=== PATIENT | female | born 1980 | race Caucasian/White ===

== ENCOUNTER 2016-11-16 15:27 | Inpatient (IN) | payer OTHER ==
[2016-11-16 21:20] VITALS: O2SAT 100
[2016-11-16] MEDS ORDERED: LACTATED RINGER'S 1000 ML INJ 1,000 ML IV SCH (22:15)
[2016-11-16] MEDS ORDERED: ALBUMIN HUMAN 25% 25 GM/100 ML BAGP IV ONE (22:15)
[2016-11-16 22:30] VITALS: O2SAT 100
[2016-11-16] MEDS ORDERED: VECURONIUM BROMIDE 10 MG VIAL IV SCH (22:45)
[2016-11-16] MEDS ORDERED: INSULIN HUMAN REGULAR 1,000 UNITS/10 ML VIAL IV PUSH SCH (22:45)
[2016-11-16] MEDS ORDERED: ceFAZolin 1,000 MG/NS 100 ML IV SCH ×2 (22:45)
[2016-11-16] MEDS ORDERED: LEVOTHYROXINE 400 MCG/NS 500 ML IV SCH ×2 (22:45)
[2016-11-16] MEDS ORDERED: VASOPRESSIN 80 U/NS 100 ML Titrate per Translife Protocol IV PRN ×2 (22:45)
[2016-11-16] MEDS ORDERED: DEXTROSE 50% IN WATER 50 ML VIAL(D50) IV SCH (22:45)
[2016-11-16] MEDS ORDERED: VECURONIUM BROMIDE 10 MG VIAL IV PRN (22:45)
[2016-11-16] MEDS ORDERED: LEVOTHYROXINE SODIUM 100 MCG VIAL IV PUSH ONE (22:45)
[2016-11-16] MEDS ORDERED: NALOXONE HCL 2 MG/2 ML VIAL IV ONE (22:45)
[2016-11-16] MEDS ORDERED: ICU - CALL ORDERING PHYSICIAN PRN (23:00)
[2016-11-16] MEDS ORDERED: ICU - SODIUM PHOSPHATE 30 MMOL/NS 250 ML IV PRN ×2 (23:00)
[2016-11-16] MEDS ORDERED: ICU - POTASSIUM CHLORIDE/AQUEOUS SOLN 20 MEQ/100 ML IVPB IV PRN (23:00)
[2016-11-16] MEDS ORDERED: ICU - MAGNESIUM SULFATE 4 GM/NS 100 ML IV PRN ×2 (23:00)
[2016-11-16] MEDS ORDERED: methylPREDNISolone SO SUCC INJ 2,000 MG in DEXTROSE 5% IN WATER INJ 250 ML IV ONE ×2 (23:00)
[2016-11-16] MEDS ORDERED: POTASSIUM CHLORIDE 25 MEQ EFFERVESCENT TAB PO PRN (23:00)
[2016-11-16] MEDS ORDERED: ICU - MAGNESIUM OXIDE 400 MG TAB PO PRN (23:00)
[2016-11-16] MEDS ORDERED: ICU - POTASSIUM PHOSPHATE 30 MMOL/NS 250 ML IV PRN ×2 (23:00)
[2016-11-16] MEDS ORDERED: ICU - POTASSIUM PHOSPHATE MONOBASIC 500 MG TAB PO PRN (23:00)
[2016-11-16] MEDS ORDERED: ICU - MAGNESIUM SULFATE 2 GM/NS 100 ML IV PRN ×2 (23:00)
[2016-11-16] MEDS ORDERED: DOPamine INJ 400 MG in SODIUM CHLOR 0.9% 250 ML INJ 250 ML IV PRN (23:00)
[2016-11-16] MEDS ORDERED: ICU - D/C ICU ELECTROLYTE ORDERS PRN (23:00)
[2016-11-17] VITALS (10 sets, daily range): BP systolic 106–161; BP diastolic 60–100; PULSE 89–100; RESP 12–15; TEMP 95.5–98.6; O2SAT 97–100
[2016-11-17 00:03] LABS: AUTOMATED NEUTROPHIL # 4.5 TH/MM3 (1.8-7.7); BASOPHIL % 0.3 % (0.0-2.0); EOSINOPHIL # 0.1 TH/MM3 (0-0.4); EOSINOPHIL % 1.8 % (0.0-4.0); HEMATOCRIT 32.5 % (35.0-46.0); HEMO FLAGS DIFF FINAL; LYMPH % 28.4 % (9.0-44.0); MEAN CELL VOLUME 88.4 FL (80.0-100.0); MEAN CORPUSCULAR HEMOGLOBIN 28.4 PG (27.0-34.0); MEAN CORPUSCULAR HGB CONC 32.1 % (32.0-36.0); MONO % 5.9 % (0.0-8.0); NEUT % 63.6 % (16.0-70.0); PLATELET COUNT 115 TH/MM3 (150-450); RED BLOOD COUNT 3.67 MIL/MM3 (4.00-5.30); RED CELL DISTRIBUTION WIDTH 20.6 % (11.6-17.2); WHITE BLOOD COUNT 7.1 TH/MM3 (4.0-11.0)
[2016-11-17 00:05] LABS: BACTERIA, URINE RARE /hpf; BLOOD, URINE NEG (NEG); COMMENT (UR) CATH-CULTURE IND; CULTURE IF INDICATED CATH CULTURE IND; GLUCOSE,URINE NEG (NEG); KETONE, URINE NEG (NEG); NITRITE,URINE NEG (NEG); PH, URINE 7.5 (5.0-8.5); URINE COLOR LIGHT-YELLOW (YELLW/STRAW)
[2016-11-17] MEDS: PIPERACIL-TAZO 4.5 GM PREMIX 100 ML IV SCH ×4 (00:05→16:07)
[2016-11-17] MEDS: VANCOMYCIN 1,000 MG/NS 250 ML IV SCH ×4 (00:05→03:18)
--- NOTE | 2016-11-17 00:13 | RADRPT ---
EXAM DATE/TIME: 11/16/2016 23:50 [facility] COMPARISON: No previous studies available for comparison. INDICATIONS : Trans life- Organ Donation MEDICAL HISTORY : None. SURGICAL HISTORY : None. ENCOUNTER: Initial ACUITY: 1 day PAIN SCORE: Non-responsive. LOCATION: Bilateral chest FINDINGS: Portable AP view of the chest demonstrates a normal-sized cardiac silhouette. Endotracheal tube is pr esent measuring 2.3 cm from the bg. Nasogastric tube is looped in the stomach and right subclavia n central line distal tip is in the superior vena cava. Multiple EKG lines overlie the patient. There is retrocardiac opacity obscuring the left hemidiaphragm. There is pleural-parenchymal opacity at th e right base. No pneumothorax is visualized. Bones and soft tissues demonstrate no acute finding. CONCLUSION: 1. Right basilar opacity likely representing pleural effusion with associated volume loss and/or airs pace consolidation. 2. Left lower lobe opacity representing either atelectasis or airspace consolidation. Braeden Kaufman MD on November 17, 2016 at 0:10 Board Certified Radiologist. This report was verified electronically.
[2016-11-17] MEDS: RESP: ALBUTEROL 2.5 MG/3 ML NEB (SCH) NEB ×5 (00:40→15:36)
[2016-11-17] MEDS ORDERED: methylPREDNISolone SO SUCC INJ 2,000 MG in SODIUM CHLOR 0.9% 250 ML INJ 250 ML IV ONE (00:45)
[2016-11-17 00:54] LABS: BLOOD GAS BASE EXCESS 5.9 mmol/L (-2-2); BLOOD GAS CARBOXYHEMOGLOBIN 1.3 % (0-4); BLOOD GAS HCO3 29 mmol/L (22-26); BLOOD GAS METHEMOGLOBIN 0.5 % (0-2); BLOOD GAS O2 HGB SATURATION 99 % (90-100); BLOOD GAS OXYGEN CONTENT 15.1 Vol % (12.0-20.0); BLOOD GAS PCO2 35 mmHg (38-42); BLOOD GAS PO2 396 mmHg (61-120); BLOOD GAS TOTAL HGB 10.2 G/DL (12.0-16.0); TEMP CORR TO 98.6
[2016-11-17 00:56] LABS: CRITICAL VALUE YES; FIO2 100 %; OXYGEN DEVICE VENTILATOR; VENT SETTINGS AC/15/500/PEEP5
[2016-11-17 00:57] LABS: DRAW SITE ART LINE; STAT NO
[2016-11-17 01:05] LABS: MAGNESIUM 2.3 MG/DL (1.5-2.5)
[2016-11-17 01:06] LABS: BICARBONATE 33.3 MEQ/L (21.0-32.0)
[2016-11-17 01:09] LABS: POTASSIUM 2.8 MEQ/L (3.5-5.1)
[2016-11-17] MEDS: CLINDAMYCIN 900 MG in NS 100 ML IV SCH ×4 (01:38→16:08)
[2016-11-17] MEDS: 0.0225% SODIUM CHLORIDE, POTASSIUM CHLORIDE 20 MEQ IV SCH ×6 (01:38→12:17)
[2016-11-17] MEDS: SODIUM CHLOR 0.45% IV SCH ×2 (01:38→11:00)
[2016-11-17] MEDS: ACETYLCYSTEINE IV SCH ×2 (01:38→11:00)
[2016-11-17] MEDS: cefTAZidime 1,000 MG/NS 100 ML IV SCH ×8 (01:43→17:49)
[2016-11-17] MEDS: ICU - POTASSIUM CHLORIDE/AQUEOUS SOLN 40 MEQ/100 ML IVPB IV PRN ×2 (02:00→04:00)
[2016-11-17] MEDS ORDERED: FUROSEMIDE 20 MG/2 ML VIAL IV PUSH ONE (03:00)
[2016-11-17] MEDS ORDERED: ALBUMIN HUMAN 25% 25 GM/100 ML BAGP IV ONE (03:00)
[2016-11-17] MEDS ORDERED: IOHEXOL 350 MG/ML 10 ML VIAL (for RAD DIAG) IVCONTRAST ONE (04:17)
--- NOTE | 2016-11-17 04:31 | RADRPT ---
EXAM DATE/TIME: 11/17/2016 04:06 [facility] COMPARISON: No previous studies available for comparison. INDICATIONS : Translife. IV CONTRAST: 100 cc Omnipaque 350 (iohexol) IV ; Cumulative dose for multiple exams. RADIATION DOSE: 5.13 CTDIvol (mGy) ; Combined studies - Thorax/Abdomen/Pelvis MEDICAL HISTORY : Non-responsive. SURGICAL HISTORY : Non-responsive. ENCOUNTER: Initial ACUITY: 1 day PAIN SCALE: Non-responsive LOCATION: chest TECHNIQUE: Volumetric scanning of the chest was performed. Using automated exposure control and adjustment of t he mA and/or kV according to patient size, radiation dose was kept as low as reasonably achievable to obtain optimal diagnostic quality images. DICOM format image data is available electronically for review and comparison. Follow-up recommendations for detected pulmonary nodules are based at a minimum on nodule size and pa tient risk factors according to Fleischner Society Guidelines. FINDINGS: LUNGS: There are small bilateral pleural effusions, right larger than left with associated compressive atele ctasis in the lower lobes. No pneumothorax is present. No pulmonary nodules are visualized. PLEURA: There are small simple appearing bilateral pleural effusions, right larger than left. No pleural thic kening. MEDIASTINUM: The heart and great vessels demonstrate no abnormality. Right IJ line distal tip is in the right atri um. There is trace pericardial fluid. There is no mediastinal or hilar lymphadenopathy. AXILLAE: Within normal limits. No lymphadenopathy. SKELETAL: Bones demonstrate no abnormality. MISCELLANEOUS: There is a unilateral right breast implant present. Endotracheal tube and nasogastric tube are presen t. Please refer to abdomen and pelvis CT report for description of the subdiaphragmatic findings. CONCLUSION: 1. Small simple appearing bilateral pleural effusions, right larger than left. There is associated co mpressive atelectasis in the lower lobes bilaterally. 2. No other significant abnormality is present. Braeden Kaufman MD on November 17, 2016 at 4:25 Board Certified Radiologist. This report was verified electronically.
--- NOTE | 2016-11-17 04:37 | RADRPT ---
EXAM DATE/TIME: 11/17/2016 04:06 [facility] COMPARISON: No previous studies available for comparison. INDICATIONS : Translife IV CONTRAST: 100 cc Omnipaque 350 (iohexol) IV ; Cumulative dose for multiple exams. ORAL CONTRAST: No oral contrast ingested. RADIATION DOSE: 5.12 CTDIvol (mGy) ; Combined studies - Thorax/Abdomen/Pelvis MEDICAL HISTORY : Non-responsive. SURGICAL HISTORY : Non-responsive. ENCOUNTER: Initial ACUITY: 1 day PAIN SCALE: Non-responsive LOCATION: abdomen TECHNIQUE: Volumetric scanning of the abdomen and pelvis was performed. Using automated exposure control and ad justment of the mA and/or kV according to patient size, radiation dose was kept as low as reasonably achievable to obtain optimal diagnostic quality images. DICOM format image data is available electro nically for review and comparison. FINDINGS: LOWER LUNGS: Please refer to chest CT report for description of the supradiaphragmatic findings. LIVER: Homogeneous density without lesion. There is no dilation of the biliary tree. No calcified gallston es. There is mild gallbladder wall edema. SPLEEN: Normal size without lesion. PANCREAS: Within normal limits. KIDNEYS: Normal in size and shape. There is no mass, stone or hydronephrosis. Symmetric enhancement. ADRENAL GLANDS: Within normal limits. VASCULAR: There is no aortic aneurysm. No vascular abnormality is identified. There are single renal arteries b ilaterally. BOWEL/MESENTERY: The stomach, small bowel, and colon demonstrate no acute abnormality. Nasogastric tube is looped in t he stomach. There is no free intraperitoneal air or fluid. ABDOMINAL WALL: There is anasarca. RETROPERITONEUM: There is no lymphadenopathy. BLADDER: Maurice catheter is present. Air is present within the lumen. REPRODUCTIVE: Uterus demonstrates no abnormality. In the left adnexa there is a low-density structure measuring 8.9 cm. There is additional ring like fat density in the left and upper pelvis with peripheral linear ca lcification or metallic density measuring 4.2 cm. INGUINAL: There is no lymphadenopathy or hernia. MUSCULOSKELETAL: Within normal limits. CONCLUSION: 1. Solid organs demonstrate no abnormality. There is mild gallbladder wall edema. 2. Nonspecific structures in the left pelvis with mass effect on the urinary bladder and uterus measu ring 8.9 cm and 4.2 cm. This could represent ovarian lesions with the more superior containing fat de nsity potentially representing a dermoid. 3. Anasarca. Braeden Kaufman MD on November 17, 2016 at 4:30 Board Certified Radiologist. This report was verified electronically.
[2016-11-17] MEDS ORDERED: FUROSEMIDE 20 MG/2 ML VIAL IV ONE (05:15)
[2016-11-17 05:41] LABS: BLOOD GAS BASE EXCESS 2.5 mmol/L (-2-2); BLOOD GAS CARBOXYHEMOGLOBIN 1.2 % (0-4); BLOOD GAS HCO3 27 mmol/L (22-26); BLOOD GAS METHEMOGLOBIN 0.8 % (0-2); BLOOD GAS O2 HGB SATURATION 98 % (90-100); BLOOD GAS OXYGEN CONTENT 13.1 Vol % (12.0-20.0); BLOOD GAS PCO2 42 mmHg (38-42); BLOOD GAS PO2 365 mmHg (61-120); BLOOD GAS TOTAL HGB 8.8 G/DL (12.0-16.0); CRITICAL VALUE NO; TEMP CORR TO 98.6
[2016-11-17 05:42] LABS: DRAW SITE ART LINE; FIO2 100 %; OXYGEN DEVICE VENTILATOR; STAT NO; VENT SETTINGS AC/12/500/PEEP5
[2016-11-17] MEDS ORDERED: methylPREDNISolone SOD SUCC 1000 MG/16 ML VIAL IV SCH (07:00)
[2016-11-17 07:17] LABS: AUTOMATED NEUTROPHIL # 5.2 TH/MM3 (1.8-7.7); BASOPHIL % 0.1 % (0.0-2.0); EOSINOPHIL % 0.4 % (0.0-4.0); HEMATOCRIT 25.6 % (35.0-46.0); HEMO FLAGS DIFF FINAL; LYMPH % 12.4 % (9.0-44.0); LYMPHOCYTE # 0.8 TH/MM3 (1.0-4.8); MEAN CELL VOLUME 87.2 FL (80.0-100.0); MEAN CORPUSCULAR HEMOGLOBIN 29.1 PG (27.0-34.0); MEAN CORPUSCULAR HGB CONC 33.3 % (32.0-36.0); MONO % 4.5 % (0.0-8.0); NEUT % 82.6 % (16.0-70.0); PLATELET COUNT 106 TH/MM3 (150-450); RED BLOOD COUNT 2.93 MIL/MM3 (4.00-5.30); RED CELL DISTRIBUTION WIDTH 19.9 % (11.6-17.2); WHITE BLOOD COUNT 6.3 TH/MM3 (4.0-11.0)
[2016-11-17 07:28] LABS: INTERNATIONAL NORMALIZED RATIO 1.1 RATIO
[2016-11-17 07:44] LABS: ALKALINE PHOSPHATASE 82 U/L (45-117); ALT (GPT) 94 U/L (10-53); ANION GAP 8 MEQ/L (5-15); AST (GOT) 49 U/L (15-37); BICARBONATE 28.6 MEQ/L (21.0-32.0); BLOOD UREA NITROGEN 12 MG/DL (7-18); CHLORIDE 127 MEQ/L (98-107); GLOMERULAR FILTRATION RATE 40 ML/MIN (>89); MAGNESIUM 2.3 MG/DL (1.5-2.5); POTASSIUM 3.7 MEQ/L (3.5-5.1); TOTAL BILIRUBIN ADULT 2.2 MG/DL (0.2-1.0)
[2016-11-17 08:01] LABS: SODIUM (NA) 164 MEQ/L (136-145)
--- NOTE | 2016-11-17 08:11 | ECHRPT ---
Indication: EF assessment of CHF CONCLUSIONS Normal left ventricular size. Wall thickness is normal. The left ventricular systolic function is moderately reduced with an estimated ejection fraction in the range of 40-45%. The right ventriclar size is upper limits of normal. The right ventricular systoilc function is normal. The left atrial size is mildly dilated. The right atrial size is mildly dilated. No atrial level shunt is demonstrated by color flow Doppler interrogation. [id number] mitral valve regurgitation. No mitral valve stenosis. No aortic valve regurgitation. No aortic valve stenosis. There is mild to moderate tricuspid valve regurgitation. There is estimated mild pulmonary hypertension present (range 40-50 mmHg). No pulmonary valve regurgitation. The inferior vena cava is dilated. There is less than 50% respiratory change in dimension of the inferior vena cava (abnormal). No significant pericardial effusion. BP: 116 / 82 HR: 92 Rhythm: Sinus Technical Quality:Good FINDINGS LEFT VENTRICLE Normal left ventricular size. Wall thickness is normal. The left ventricular systolic function is moderately reduced with an estimated ejection fraction in the range of 40-45%. Left ventricular diastolic function parameters are normal. RIGHT VENTRICLE The right ventriclar size is upper limits of normal. The right ventricular systoilc function is normal. LEFT ATRIUM The left atrial size is mildly dilated. RIGHT ATRIUM The right atrial size is mildly dilated. ATRIAL SEPTUM No atrial level shunt is demonstrated by color flow Doppler interrogation. AORTA The aortic root and proximal ascending aorta are normal in size on limited imaging. MITRAL VALVE Structurally normal mitral valve. [id number] mitral valve regurgitation. No mitral valve stenosis. AORTIC VALVE No aortic valve regurgitation. No aortic valve stenosis. TRICUSPID VALVE Structurally normal tricuspid valve. There is mild to moderate tricuspid valve regurgitation. There is estimated mild pulmonary hypertension present (range 40-50 mmHg). PULMONARY VALVE No pulmonary valve regurgitation. VESSELS The inferior vena cava is dilated. There is less than 50% respiratory change in dimension of the inferior vena cava (abnormal). PERICARDIUM No significant pericardial effusion. Parviz Sinha MD (Electronically Signed) Final Date:17 November 2016 08:11
[2016-11-17 11:33] LABS: BACTERIA, URINE RARE /hpf; BLOOD, URINE TRACE (NEG); GLUCOSE,URINE NEG (NEG); HYALINE CAST, URINE 4 /lpf (RARE); KETONE, URINE TRACE mg/dL (NEG); MUCUS URINE FEW /lpf (OCC); NITRITE,URINE NEG (NEG); SQUAMOUS EPITHELIAL CELL URINE 1 /hpf (0-5); TRANSITIONAL EPI CELLS, URINE <1 /hpf; URINE COLOR YELLOW (YELLW/STRAW); WHITE BLOOD CELL CAST, URINE 1 /lpf
[2016-11-17 11:35] LABS: COMMENT (UR) CATH-CULTURE IND; CULTURE IF INDICATED CATH CULTURE IND
[2016-11-17] MEDS ORDERED: HEPARIN SODIUM - IV 10,000 UNITS/10 ML VIAL IV ONE (11:41)
[2016-11-17] MEDS ORDERED: methylPREDNISolone SO SUCC INJ 1,000 MG in SODIUM CHLORIDE 0.9% INJ 100 ML IV SCH (16:00)
[2016-11-17 16:14] LABS: AUTOMATED NEUTROPHIL # 5.4 TH/MM3 (1.8-7.7); BASOPHIL % 0.1 % (0.0-2.0); HEMATOCRIT 27.8 % (35.0-46.0); HEMO FLAGS DIFF FINAL; LYMPH % 17.7 % (9.0-44.0); LYMPHOCYTE # 1.2 TH/MM3 (1.0-4.8); MEAN CELL VOLUME 88.5 FL (80.0-100.0); MEAN CORPUSCULAR HGB CONC 31.6 % (32.0-36.0); MONO % 3.4 % (0.0-8.0); NEUT % 78.8 % (16.0-70.0); PLATELET COUNT 106 TH/MM3 (150-450); RED BLOOD COUNT 3.14 MIL/MM3 (4.00-5.30); RED CELL DISTRIBUTION WIDTH 20.5 % (11.6-17.2); WHITE BLOOD COUNT 6.8 TH/MM3 (4.0-11.0)
[2016-11-17 16:16] LABS: BACTERIA, URINE RARE /hpf; BLOOD, URINE MOD (NEG); COMMENT (UR) CULTURE INDICATED; CULTURE IF INDICATED CULTURE INDICATED; GLUCOSE,URINE NEG (NEG); HYALINE CAST, URINE 4 /lpf (RARE); KETONE, URINE 10 mg/dL (NEG); MUCUS URINE FEW /lpf (OCC); NITRITE,URINE NEG (NEG); SQUAMOUS EPITHELIAL CELL URINE 1 /hpf (0-5); TRANSITIONAL EPI CELLS, URINE 1 /hpf; URINE COLOR YELLOW (YELLW/STRAW)
[2016-11-17 16:52] LABS: ALKALINE PHOSPHATASE 82 U/L (45-117); ALT (GPT) 90 U/L (10-53); ANION GAP 14 MEQ/L (5-15); AST (GOT) 49 U/L (15-37); BICARBONATE 25.2 MEQ/L (21.0-32.0); BLOOD UREA NITROGEN 13 MG/DL (7-18); CHLORIDE 123 MEQ/L (98-107); GLOMERULAR FILTRATION RATE 35 ML/MIN (>89); POTASSIUM 3.8 MEQ/L (3.5-5.1); TOTAL BILIRUBIN ADULT 2.2 MG/DL (0.2-1.0)
[2016-11-17 17:00] LABS: SODIUM (NA) 162 MEQ/L (136-145)
== END 2016-11-17 21:42 | disposition expired | DRG 951 ==
LOC: N03A 15:27
DX: Z52.89 Donor of other specified organs or tissues (principal)
CPT/HCPCS: 36620; 71010; 71260; 74177; 80048; 80053; 80074; 81001; 82248; 82330; 82550; 82805; 82977; 83735; 84100; 84484; 85025; 85610; 85730; 86850; 86900; 86901; 86920; 87040; 87070; 87086; 87205; 88307; 88329; 93005; 93308; 94003; 94640; 94664; 94667; 94668; J0132; J0713; J1265; J1644; J1815; J1940; J2543; J2930; J3370; J3480; J7040; J7050; J7613; P9047; Q9967